=== PATIENT | female | born 1975 | race Caucasian/White ===

== ENCOUNTER 2016-08-17 22:52 | Emergency (ER) | payer SELFPAY ==
[2016-08-17 23:02] VITALS: PULSE 76; O2SAT 100
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
[2016-08-17] MEDS ORDERED: Oxycodone/Acetaminophen 5/325 mg Tab PO STA (23:25)
[2016-08-17] MEDS ORDERED: Oxycodone/Acetaminophen 5/325 mg Tab ONE (23:34)
[2016-08-17 23:46] LABS: RBC URINE 1 /hpf (0-3); URINE BILIRUBIN NEGATIVE (NEGATIVE); URINE BLOOD NEGATIVE (NEGATIVE); URINE COLOR Yellow (YELLOW); URINE GLUCOSE (UA) NORMAL (Normal); URINE KETONE NEGATIVE (NEGATIVE); URINE LEUKOCYTE ESTERASE TRACE Leu/uL (Negative); URINE PROTEIN NEGATIVE (NEGATIVE); URINE UROBILINOGEN NORMAL mg/dL (0.2-1.0); WBC URINE 14 /hpf (0-5)
[2016-08-18 00:50] VITALS: BP 124/72; RESP 18; TEMP 97.8
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
== END 2016-08-18 00:53 | disposition home or self-care (01) ==
LOC: C.ER 22:52
DX: S00.83XA Contusion of other part of head, initial encounter (principal); S40.022A Contusion of left upper arm, initial encounter; S40.021A Contusion of right upper arm, initial encounter; Y04.2XXA Assault by strike against or bumped into by another person, initial encounter; Y92.9 Unspecified place or not applicable